=== PATIENT | male | born 1970 | race Caucasian/White ===

== ENCOUNTER 2017-03-26 00:24 | Inpatient (IN) | payer OTHER ==
[2017-03-26] MEDS ORDERED: NITROGLYCERIN 2% OINTMENT - 1GM PACKET TD ONE ×2 (01:11→01:14)
--- NOTE | 2017-03-26 01:22 | PDOC ---
History of Present Illness - General History Source: Patient Exam Limitations: No Limitations <Fide Trejo - Last Filed: 03/26/17 01:23> <Williams Oropeza - Last Filed: 03/26/17 02:15> - General Chief Complaint: Chest Pain Stated Complaint: CHEST PAIN Time Seen by Provider: 03/26/17 00:39 - History of Present Illness Initial Comments: 03/26/17 01:23 Patient is a 47 year old male, with past medical history of hypertension, who presents with chest pain. Patient describes the pain tightness, pulsating pressure like pain localized to the left side of the chest. He notes that the episode developed at 12 AM lasted for 15-20 mins which has subsided now. Patient states that the pain is non radiating, nonpleuritic, intermittent, 6/10 in severity with no alleviating or exacerbating factors with associated diaphoresis. He denies reproducible pain with moving the left arm. He denies leg pain or swelling. He notes that his last long travel was in December to [facility]. SH - former smoker quit in 1995 used to smoke 1/2 pack a day for 10-12 years. ALL - aspirin PSH - partial thyroidectomy PCP - Dr. Torres (Fide Trejo) Past History <Fide rTejo - Last Filed: 03/26/17 01:23> - Past Medical History HTN: Yes - Psycho/Social/Smoking Cessation Hx Suicidal Ideation: No Smoking Status: No Smoking History: Never smoked Number of Cigarettes Smoked Daily: 0 Hx Alcohol Use: No Drug/Substance Use Hx: No <Williams Oropeza - Last Filed: 03/26/17 02:15> - Past Medical History Allergies/Adverse Reactions: Allergies Allergy/AdvReac Type Severity Reaction Status Date / Time aspirin Allergy Mild "EYES Verified 03/26/17 00:36 BURN..FACE BLOWS UP LIKE BALLOON" Home Medications: Ambulatory Orders Amlodipine Besylate 5 mg PO DAILY 03/26/17 Valsartan 160 mg PO DAILY 03/26/17 Review of Systems - Review of Systems Able to Perform ROS?: Yes <Fide Trejo - Last Filed: 03/26/17 01:23> <Williams Oropeza - Last Filed: 03/26/17 02:15> - Review of Systems Comments:: 03/26/17 01:24 CONSTITUTIONAL: No fever, no chills, no fatigue EYES: No visual changes ENT: No ear pain, no sore throat CARDIOVASCULAR: +chest pain, +diaphoresis. No palpitations RESPIRATORY: No cough, no SOB GI: No abdominal pain, no nausea, no vomiting, no constipation, no diarrhea GENITOURINARY: No dysuria, no frequency, no hematuria MUSKULOSKELETAL: No back pain, no joint pain, no myalgias SKIN: No rash NEURO: No headache (Fide Trejo) *Physical Exam <Fide Trejo - Last Filed: 03/26/17 01:23> <Williams Oropeza - Last Filed: 03/26/17 02:15> - Vital Signs Last Vital Signs Temp Pulse Resp BP Pulse Ox 99 F 73 17 129/74 98 03/26/17 00:25 03/26/17 00:42 03/26/17 00:42 03/26/17 00:42 03/26/17 00:42 - Physical Exam Comments: 03/26/17 01:24 CONSTITUTIONAL: Well-appearing; well-nourished; in no apparent distress HEAD: Normocephalic; atraumatic EYES: PERRL; EOM intact ENMT: External appears normal; normal oropharynx NECK: Supple; nontender; no cervical lymphadenopathy CARD: Normal S1, S2; no murmurs, rubs, or gallops RESP: Normal chest excursion with respiration; breath sounds clear and equal bilaterally; no wheezes, rhonchi, or rales ABD: +Obese. Soft, non-distended; non-tender; no palpable organomegaly, no palpable hernias EXT: Normal ROM in all four extremities; non-tender to palpation; distal pulses intact SKIN: Warm, dry, no rash NEURO: No focal neurological deficiencies. (Fide Trejo) ED Treatment Course - LABORATORY CBC & Chemistry Diagram: 03/26/17 01:19 03/26/17 01:19 <Williams Oropeza - Last Filed: 03/26/17 02:15> - ADDITIONAL ORDERS Additional order review: Laboratory Results 03/26/17 03/26/17 01:19 01:19 INR 1.12 Sodium 140 Potassium 3.8 Chloride 102 Carbon Dioxide 30 Anion Gap 8 BUN 30 H Creatinine 1.6 H Creat Clearance w eGFR 46.17 Random Glucose 101 Calcium 8.7 Total Bilirubin 0.6 AST 22 ALT 34 Alkaline Phosphatase 43 L Creatine Kinase 325 H Troponin I 0.05 Total Protein 7.0 Albumin 4.0 03/26/17 01:19 RBC 4.52 MCV 94.2 MCHC 34.9 RDW 12.6 MPV 7.6 Neutrophils % 61.5 Lymphocytes % 27.4 Monocytes % 9.5 Eosinophils % 1.1 Basophils % 0.5 - RADIOLOGY Radiology Studies Ordered: Category Date Time Status CHEST X-RAY PORTABLE* [RAD] Stat Radiology 03/26/17 01:10 Ordered - Medications Given in the ED: ED Medications Discontinued Medications Generic Name Dose Route Start Last Admin Trade Name Freq PRN Reason Stop Dose Admin Clopidogrel Bisulfate 75 mg 03/26/17 02:01 03/26/17 02:10 Plavix - PO 03/26/17 02:02 75 mg ONCE ONE Administration Nitroglycerin 1 inch 03/26/17 01:11 03/26/17 01:28 Nitro-Bid 2% Paste - TD 03/26/17 01:12 1 inch ONCE ONE Administration Medical Decision Making <Fide Trejo - Last Filed: 03/26/17 01:23> <Williams Oropeza - Last Filed: 03/26/17 02:15> - Medical Decision Making 03/26/17 01:41 47-year-old male with history of hypertension, thyroid goiter, obesity, presents to the ER with left-sided chest pressure associated with mild shortness of breath and diaphoresis. In the ER, patient is asymptomatic and normotensive. Cotter saturation is noted to be 98% on room air. Initial EKG is within normal limit without evidence of acute ischemia. I suspect ACS. We'll obtain CBC/CMP/cardiac profile. We'll obtain chest x-ray. We'll administer transdermal nitroglycerin and Plavix by mouth (patient is severely aspirin ALLERGIC). We will admit for serial cardiac enzymes and cardiology evaluation. 03/26/17 02:10 Patient reassessed. Patient is resting comfortably and is currently symptom- free. First set of cardiac enzymes revealed an elevated CPK and normal troponin. Will admit for serial enzymes. Dr. Cordova informed and agrees with the plan of care. (Williams Oropeza) *DC/Admit/Observation/Transfer <Fide Trejo - Last Filed: 03/26/17 01:23> - Discharge Dispostion Admit: Yes <Williams Oropeza - Last Filed: 03/26/17 02:15> Diagnosis at time of Disposition: Acute coronary syndrome - Discharge Dispostion Condition at time of disposition: Fair - Referrals Referrals: Keshawn Torres MD [Primary Care Provider] - - Attestations Scribe Attestion: 03/26/17 01:25 Documentation prepared by RADHA Tolliver, acting as medical auditor for Williams Oropeza MD. (Fide Trejo) Physician Attestion: 03/26/17 01:41 The documentation was prepared by the scribe under my direct supervision. I have reviewed the documentation which correctly represents the findings, medical decision-making and critical action taken by me. (Williams Oropeza)
[2017-03-26 01:31] LABS: BASOPHIL 0.5 % (0-2.0); EOSINOPHIL 1.1 % (0-4.5); MCH 32.9 pg (25.7-33.7); MCHC 34.9 g/dl (32.0-35.9); MEAN CELL VOLUME 94.2 fl (80-96); MEAN PLT VOLUME 7.6 fl (7.5-11.1); NEUTROPHILS 61.5 % (42.8-82.8); PLATELET COUNT 179 K/MM3 (134-434); RDW 12.6 % (11.9-15.9); WHITE BLOOD COUNT 5.8 K/mm3 (4.0-10.0)
[2017-03-26 01:43] LABS: INR 1.12 (0.82-1.09); PROTHROMBIN TIME (PATIENT) 12.3 SEC (9.98-11.88)
[2017-03-26 01:53] LABS: ANION GAP 8 (8-16); BILIRUBIN,TOTAL 0.6 mg/dL (0.2-1.0); CALCIUM 8.7 mg/dL (8.5-10.1); CO2 30 mmol/L (21-32); CPK 325 IU/L (39-308); CREATININE 1.6 mg/dL (0.7-1.3); GLUCOSE,RANDOM 101 mg/dL (74-106); SGOT/AST 22 U/L (15-37); SGPT/ALT 34 U/L (12-78)
[2017-03-26 01:55] LABS: ALK PHOS 43 U/L (45-117); TROPONIN I 0.05 ng/ml (0.00-0.05)
[2017-03-26] MEDS ORDERED: CLOPIDOGREL BISULFATE 75 MG TABLET (FP) PO ONE (02:01)
[2017-03-26] MEDS ORDERED: SODIUM CHLORIDE 500 ML IV STA (02:02)
[2017-03-26] MEDS ORDERED: CLOPIDOGREL BISULFATE 75 MG TABLET (FP) ONE (02:05)
[2017-03-26] MEDS ORDERED: ONDANSETRON *ODT* 4 MG TABLET SL PRN (03:06)
[2017-03-26] MEDS ORDERED: ACETAMINOPHEN 325 MG TABLET (FP) PO PRN (03:06)
[2017-03-26] MEDS: DEXTROSE 5%-NORMAL SALINE 1,000 ML IV SCH (03:28)
[2017-03-26 06:57] LABS: MCH 32.6 pg (25.7-33.7); MCHC 34.8 g/dl (32.0-35.9); MEAN CELL VOLUME 93.5 fl (80-96); PLATELET COUNT 169 K/MM3 (134-434); RDW 12.8 % (11.9-15.9); WHITE BLOOD COUNT 5.2 K/mm3 (4.0-10.0)
[2017-03-26 07:15] LABS: TROPONIN I 0.05 ng/ml (0.00-0.05)
[2017-03-26 07:24] LABS: ALBUMIN 3.6 g/dl (3.4-5.0); ALK PHOS 38 U/L (45-117); ANION GAP 5 (8-16); BILIRUBIN,TOTAL 0.8 mg/dL (0.2-1.0); CALCIUM 8.4 mg/dL (8.5-10.1); CHOLESTEROL 158 mg/dL (50-200); CO2 30 mmol/L (21-32); CREATININE 1.2 mg/dL (0.7-1.3); GLUCOSE,RANDOM 102 mg/dL (74-106); SGOT/AST 21 U/L (15-37); SGPT/ALT 27 U/L (12-78); TOT PROT 6.4 g/dl (6.4-8.2)
[2017-03-26] MEDS ORDERED: VALSARTAN 160 MG TABLET (UD) PO SCH (10:00)
[2017-03-26] MEDS ORDERED: DIPYRIDAMOLE STRESS TEST 50 MG in DEXTROSE 5%-WATER - 40 ML IVPB ONE (10:30)
--- NOTE | 2017-03-26 11:00 | HP ---
Admitting History and Physical - Primary Care Physician PCP: Keshawn Torres - Admission Chief Complaint: chest pressure History of Present Illness: Patient is a 47 year old male, with past medical history of hypertension, who presents with chest pain. Patient describes the pain tightness, which started yesterday in evening, he state if felt like something heavy on the chest and he felt a little SOB< no nausea,no palpations non radiating, chest pain localized to left side of chest , it woke patient up from his sleep he took his pressure and 183/108 at that point he woke up his and told her to take him to the ER he stated he had angiogram 5 yrs ok and was told it was ok he states he has been experiencing SOB on walking about 1/2 block for last few weeks and he notice since yesterday his sneakers felt tighter, . per nursing noted complained of abdominal pain patient in ER he got plavix and nitroglycerin paste curently he is getting stress test= patient seen and examined in cardiac lab History Source: Patient - Past Medical History Cardiovascular: Yes: HTN Endocrine: Yes: Hypothyroidism - Past Surgical History Additional Past Surgical History: thyroidectomy - Smoking History Smoking history: Never smoked Aproximately how many cigarettes per day: 0 - Alcohol/Substance Use Hx Alcohol Use: No Home Medications - Allergies Allergies/Adverse Reactions: Allergies Allergy/AdvReac Type Severity Reaction Status Date / Time aspirin Allergy Mild "EYES Verified 03/26/17 00:36 BURN..FACE BLOWS UP LIKE BALLOON" - Home Medications Home Medications: Ambulatory Orders Amlodipine Besylate 5 mg PO DAILY 03/26/17 Valsartan 160 mg PO DAILY 03/26/17 Review of Systems - Review of Systems Neck: reports: No Symptoms Cardiovascular: reports: No Symptoms, Other (no SOB right now chest pressure resolved) Respiratory: reports: No Symptoms Gastrointestinal: reports: No Symptoms (did not complain of abdominal pain) Physical Examination Vital Signs: Vital Signs Temperature 97.5 F L 03/26/17 08:21 Pulse Rate 52 L 03/26/17 08:21 Respiratory Rate 16 03/26/17 08:21 Blood Pressure 126/77 03/26/17 08:21 O2 Sat by Pulse Oximetry (%) 98 03/26/17 08:21 sitting in stretcher awaiting second half of stress test says chest pain resolved Constitutional: Yes: Calm Neck: Yes: Trachea Midline Cardiovascular: Yes: Regular Rate and Rhythm, S1, S2 Respiratory: Yes: CTA Bilaterally Gastrointestinal: Yes: Normal Bowel Sounds, Soft Edema: No Neurological: Yes: Alert, Oriented Labs: CBC, BMP 03/26/17 06:30 03/26/17 06:30 Imaging - Results Other: Report Reviewed (carotid doppler shows mass in thyroid lobe no carotid stenosis) Problem List - Problems (1) Acute coronary syndrome Assessment/Plan: tele stress test- currently getting done awaiting results cardio consult plavix norvasc diovan carotid doppler result noted trend cardiac enzymes Code(s): I24.9 - ACUTE ISCHEMIC HEART DISEASE, UNSPECIFIED (2) Thyroid mass Assessment/Plan: thyroid sono endocrine consult Code(s): E07.9 - DISORDER OF THYROID, UNSPECIFIED
[2017-03-26] MEDS: amLODIPine BESYLATE 5 MG TABLET (FP) PO SCH (12:13)
--- NOTE | 2017-03-26 13:12 | EKG ---
Test Reason : Blood Pressure : / mmHG Vent. Rate : 053 BPM Atrial Rate : 053 BPM P-R Int : 182 ms QRS Dur : 098 ms QT Int : 442 ms P-R-T Axes : 023 -13 -02 degrees QTc Int : 414 ms SINUS BRADYCARDIA OTHERWISE NORMAL ECG WHEN COMPARED WITH ECG OF 24-JUN-2009 09:07, VENT. RATE HAS DECREASED BY 39 BPM Confirmed by KT SUÁREZ MD ([id number]) on 03/26/2017 1:11:42 PM Referred By: Confirmed By:KT SUÁREZ MD
--- NOTE | 2017-03-26 14:50 | CON.CARD ---
Consult Consult Specialty:: cardiology Reason for Consultation:: chest pain - History of Present Illness History of Present Illness: 47 M with HTN, anxiety, obesity with a history of exertional chest tightness, came to the ER with presistent chest pressure, diaphoresis and dypsnea which improved after he received NTP. MARGARITO -ve x 2 and ECG were normal. Echocardiogram was normal. Pharmacologic stress showed mild inferolateral defect from apex to base with EF 50%. A cardiac cath about 6 years ago was reportedly negative. Currently CP free. Of note the patient is ASPIRIN ALLERGIC. - History Source History Provided By: Patient Limitations to Obtaining History: No Limitations - Past Medical History Cardio/Vascular: Yes: HTN Endocrine: Yes: Hypothyroidism - Alcohol/Substance Use Hx Alcohol Use: No - Smoking History Smoking history: Former smoker Aproximately how many cigarettes per day: 0 - Social History Usual Living Arrangement: With Spouse Home Medications - Allergies Allergies/Adverse Reactions: Allergies Allergy/AdvReac Type Severity Reaction Status Date / Time aspirin Allergy Mild "EYES Verified 03/26/17 00:36 BURN..FACE BLOWS UP LIKE BALLOON" - Home Medications Home Medications: Ambulatory Orders Amlodipine Besylate 5 mg PO DAILY 03/26/17 Valsartan 160 mg PO DAILY 03/26/17 Family Disease History - Family Disease History Family History: Unable to Obtain (Adopted) Review of Systems - Review of Systems Constitutional: reports: No Symptoms Eyes: reports: No Symptoms HENT: reports: No Symptoms Neck: reports: No Symptoms Cardiovascular: reports: Chest Pain, Shortness of Breath Respiratory: reports: No Symptoms Gastrointestinal: reports: No Symptoms Genitourinary: reports: No Symptoms Breasts: reports: No Symptoms Reported Musculoskeletal: reports: No Symptoms Integumentary: reports: No Symptoms Vital Signs: Vital Signs Temperature 98.1 F 03/26/17 14:32 Pulse Rate 63 03/26/17 14:32 Respiratory Rate 18 03/26/17 12:40 Blood Pressure 130/77 03/26/17 14:32 O2 Sat by Pulse Oximetry (%) 98 03/26/17 14:32 Constitutional: Yes: Well Nourished, No Distress, Calm Eyes: Yes: Conjunctiva Clear, EOM Intact HENT: Yes: Atraumatic, Normocephalic Neck: Yes: Supple, Trachea Midline Respiratory: Yes: Regular, CTA Bilaterally Gastrointestinal: Yes: Normal Bowel Sounds, Soft Cardiovascular: Yes: Regular Rate and Rhythm JVD: No Carotid Bruit: No PMI: Non-Displaced Heart Sounds: Yes: S1, S2 Murmur: No: Systolic Murmur, Diastolic Murmur, Grade 1, Grade 2, Grade 3, Grade 4, Grade 5, Grade 6 Musculoskeletal: Yes: WNL Extremities: Yes: WNL Edema: No Neurological: Yes: WNL - Other Data Labs, Other Data: CBC, BMP 03/26/17 06:30 03/26/17 06:30 INR, PTT INR 1.12 (0.82-1.09) 03/26/17 01:19 Troponin, BNP 03/26/17 06:37 Troponin I 0.05 Troponin, BNP 03/26/17 06:37 Troponin I 0.05 NSR no STT changes. Ejection Fraction %: LVEF > or = 40 % Imaging - Results EKG: Image Reviewed Problem List - Problems (1) Acute coronary syndrome Code(s): I24.9 - ACUTE ISCHEMIC HEART DISEASE, UNSPECIFIED Assessment/Plan 47 M HTN, anxiety with chronic CP with exertion and admitted with severe chest pressure, diaphoresis and dyspnea. Stress showed normal EF with mild perfusion abnormality. Given new exacerbation of symptoms, would advise diagnostic cath tomorrow. I have made the arrangements for transfer to the label rewinder. If PCI is needed he will be admitted for ASA desensitization. Continue Plavix 75mg qd. Metoprolol 25mg BID Lipitor 80mg qHs please check last set of cardiac enzymes. LMWH or therapeutic IV heparin NPO after midnight
[2017-03-26 17:07] LABS: TROPONIN I 0.04 ng/ml (0.00-0.05)
[2017-03-26 18:12] VITALS: BMI 37.0
--- NOTE | 2017-03-27 00:13 | CONSULT ---
Consult Consult Specialty:: endocrine Referred by:: dr.saba lovelace Reason for Consultation:: hypothyroidism - History of Present Illness Chief Complaint: chest pain History of Present Illness: 47 year old male, with past medical history of hypertension, who presents with chest pain. Patient describes the pain tightness, which started yesterday in evening, he state if felt like something heavy on the chest and he felt a little SOB< no nausea,no palpations non radiating, chest pain localized to left side of chest , denies exertional pain,had persistant severe nature 7/10 substernal pain,no fever cough,or vomiting - History Source History Provided By: Patient - Past Medical History Cardio/Vascular: Yes: HTN Endocrine: Yes: Hypothyroidism - Alcohol/Substance Use Hx Alcohol Use: No - Smoking History Smoking history: Former smoker Have you smoked in the past 12 months: No Aproximately how many cigarettes per day: 0 - Social History Usual Living Arrangement: With Spouse Home Medications - Allergies Allergies/Adverse Reactions: Allergies Allergy/AdvReac Type Severity Reaction Status Date / Time aspirin Allergy Mild "EYES Verified 03/26/17 00:36 BURN..FACE BLOWS UP LIKE BALLOON" - Home Medications Home Medications: Ambulatory Orders Amlodipine Besylate 5 mg PO DAILY 03/26/17 Valsartan 160 mg PO DAILY 03/26/17 Review of Systems - Review of Systems Constitutional: reports: Lethargy, Weakness HENT: reports: Throat Pain Neck: reports: Decreased ROM Cardiovascular: reports: No Symptoms Respiratory: reports: No Symptoms Gastrointestinal: reports: Bloating, Constipation Genitourinary: reports: No Symptoms Breasts: reports: No Symptoms Reported Musculoskeletal: reports: No Symptoms Integumentary: reports: No Symptoms Neurological: reports: No Symptoms Endocrine: reports: Intolerance to Cold Physical Exam Vital Signs: Vital Signs Temperature 98.5 F 03/26/17 18:05 Pulse Rate 60 03/26/17 18:05 Respiratory Rate 18 03/26/17 18:18 Blood Pressure 139/73 03/26/17 18:05 O2 Sat by Pulse Oximetry (%) 98 03/26/17 18:18 Constitutional: Yes: Calm Eyes: Yes: EOM Intact HENT: Yes: Normocephalic Neck: Yes: Trachea Midline, Thyromegaly Cardiovascular: Yes: Regular Rate and Rhythm, Bradycardia, S2 Respiratory: Yes: CTA Bilaterally Gastrointestinal: Yes: Normal Bowel Sounds ...Rectal Exam: Yes: Deferred Renal/: Yes: WNL Breast(s): Yes: WNL Musculoskeletal: Yes: WNL Extremities: Yes: WNL Edema: No Peripheral Pulses WNL: Yes Neurological: Yes: Alert, Oriented Labs: CBC, BMP 03/26/17 06:30 03/26/17 06:30 Problem List - Problems (1) Acute coronary syndrome Code(s): I24.9 - ACUTE ISCHEMIC HEART DISEASE, UNSPECIFIED (2) Thyroid mass Code(s): E07.9 - DISORDER OF THYROID, UNSPECIFIED (3) Hypothyroid Code(s): E03.9 - HYPOTHYROIDISM, UNSPECIFIED Assessment/Plan Current Active Problems Acute coronary syndrome (Acute) Thyroid mass (Acute) hypertension \\morbid obesity thyroid mass left lobe Abnormal Lab Results 03/26/17 03/26/17 03/26/17 01:19 06:30 06:30 MPV 7.0 L Anion Gap 5 L BUN 30 H 26 H Creatinine 1.6 H Calcium 8.4 L Alkaline Phosphatase 43 L 38 L Creatine Kinase 325 H CK-MB (CK-2) 4.319 H 03/26/17 15:45 MPV Anion Gap BUN Creatinine Calcium Alkaline Phosphatase Creatine Kinase 318 H CK-MB (CK-2) Laboratory Results - last 24 hr 03/26/17 03/26/17 03/26/17 01:19 01:19 01:19 WBC 5.8 RBC 4.52 Hgb 14.9 Hct 42.6 MCV 94.2 MCH 32.9 MCHC 34.9 RDW 12.6 Plt Count 179 MPV 7.6 Neutrophils % 61.5 Lymphocytes % 27.4 Monocytes % 9.5 Eosinophils % 1.1 Basophils % 0.5 INR 1.12 Sodium 140 Potassium 3.8 Chloride 102 Carbon Dioxide 30 Anion Gap 8 BUN 30 H Creatinine 1.6 H Creat Clearance w eGFR 46.17 Random Glucose 101 Hemoglobin A1c % Calcium 8.7 Total Bilirubin 0.6 AST 22 ALT 34 Alkaline Phosphatase 43 L Creatine Kinase 325 H Creatine Kinase Index 1.3 CK-MB (CK-2) 4.319 H Troponin I 0.05 Total Protein 7.0 Albumin 4.0 Triglycerides Cholesterol Total LDL Cholesterol HDL Cholesterol 03/26/17 03/26/17 03/26/17 06:30 06:30 06:30 WBC 5.2 RBC 4.37 Hgb 14.2 Hct 40.9 MCV 93.5 MCH 32.6 MCHC 34.8 RDW 12.8 Plt Count 169 MPV 7.0 L Neutrophils % Lymphocytes % Monocytes % Eosinophils % Basophils % INR Sodium 141 Potassium 3.8 Chloride 106 Carbon Dioxide 30 Anion Gap 5 L BUN 26 H Creatinine 1.2 D Creat Clearance w eGFR > 60 Random Glucose 102 Hemoglobin A1c % 4.8 Calcium 8.4 L Total Bilirubin 0.8 D AST 21 ALT 27 D Alkaline Phosphatase 38 L Creatine Kinase Creatine Kinase Index CK-MB (CK-2) Troponin I Total Protein 6.4 Albumin 3.6 Triglycerides 64 Cholesterol 158 Total LDL Cholesterol 98 HDL Cholesterol 44 03/26/17 03/26/17 06:37 15:45 WBC RBC Hgb Hct MCV MCH MCHC RDW Plt Count MPV Neutrophils % Lymphocytes % Monocytes % Eosinophils % Basophils % INR Sodium Potassium Chloride Carbon Dioxide Anion Gap BUN Creatinine Creat Clearance w eGFR Random Glucose Hemoglobin A1c % Calcium Total Bilirubin AST ALT Alkaline Phosphatase Creatine Kinase 305 318 H Creatine Kinase Index 1.0 0.9 CK-MB (CK-2) 3.277 2.868 Troponin I 0.05 0.04 Total Protein Albumin Triglycerides Cholesterol Total LDL Cholesterol HDL Cholesterol plan: check tsh free t4 thyroid abs ck thyroid sonogram
--- NOTE | 2017-03-27 08:40 | DS ---
Physical Examination Vital Signs: Vital Signs Temperature 97.6 F 03/27/17 06:00 Pulse Rate 50 L 03/27/17 06:00 Respiratory Rate 20 03/27/17 06:00 Blood Pressure 123/77 03/27/17 06:00 O2 Sat by Pulse Oximetry (%) 95 03/26/17 21:00 Findings/Remarks: no cp at this time Cardiovascular: Yes: S1, S2 Respiratory: Yes: Regular, CTA Bilaterally Gastrointestinal: Yes: Normal Bowel Sounds, Soft Labs: CBC, BMP 03/26/17 06:30 03/26/17 06:30 Discharge Summary Reason For Visit: ACUTE CORONARY SYNDROME Current Active Problems Acute coronary syndrome (Acute) Hypothyroid (Acute) Thyroid mass (Acute) Hospital Course: - Problems (1) Acute coronary syndrome Assessment/Plan: tele stress test---with ischemia--for cath cardio consult noted plavix norvasc diovan carotid doppler result noted trend cardiac enzymes Code(s): I24.9 - ACUTE ISCHEMIC HEART DISEASE, UNSPECIFIED (2) Thyroid mass Assessment/Plan: thyroid sono endocrine consult tsh pendind Code(s): E07.9 - DISORDER OF THYROID, UNSPECIFIED - Instructions Referrals: Keshawn Torres MD [Primary Care Provider] - - Home Medications Comprehensive Discharge Medication List: Ambulatory Orders Amlodipine Besylate 5 mg PO DAILY 03/26/17 Valsartan 160 mg PO DAILY 03/26/17
[2017-03-27] MEDS: DEXTROSE 5%-NORMAL SALINE 1,000 ML IV SCH (09:35)
[2017-03-27] MEDS: amLODIPine BESYLATE 5 MG TABLET (FP) PO SCH (09:35)
[2017-03-27] MEDS ORDERED: CLOPIDOGREL BISULFATE 75 MG TABLET (FP) PO SCH (10:00)
[2017-03-27 10:34] VITALS: BP 140/75; PULSE 55; TEMP 97.8
--- NOTE | 2017-03-30 17:00 | EKG ---
Test Reason : Blood Pressure : / mmHG Vent. Rate : 082 BPM Atrial Rate : 082 BPM P-R Int : 174 ms QRS Dur : 100 ms QT Int : 390 ms P-R-T Axes : 040 -23 044 degrees QTc Int : 455 ms NORMAL SINUS RHYTHM NORMAL ECG WHEN COMPARED WITH ECG OF 24-JUN-2009 09:07, NO SIGNIFICANT CHANGE WAS FOUND Confirmed by MARIA PAEZ MD ([id number]) on 03/30/2017 5:00:30 PM Referred By: Confirmed By:MARIA PAEZ MD
== END 2017-03-27 11:24 | disposition short-term general hospital (02) | DRG 311 ==
LOC: JER 00:24 → JERBED 02:15 → J4W 14:29
PROVIDERS: ADMIT Family Medicine; ATTEND Family Medicine
DX: I20.9 Angina pectoris, unspecified (principal); I24.9 Acute ischemic heart disease, unspecified; I10 Essential (primary) hypertension; E03.9 Hypothyroidism, unspecified; E07.9 Disorder of thyroid, unspecified; R07.9 Chest pain, unspecified; E66.01 Morbid (severe) obesity due to excess calories; Z68.37 Body mass index [BMI] 37.0-37.9, adult
CPT/HCPCS: 36415; 71010-TC; 74020-TC; 78452-TC; 80053; 80061; 82553; 83036; 83721; 84443; 84484; 85025; 85027; 85610; 86800; 93005; 93010; 93017; 93306-TC; 93880-TC; 99285-25; A9502

== ENCOUNTER 2021-02-06 08:32 | Observation (INO) | payer OTHER ==
[2021-02-06 09:37] LABS: BASO % 0.5 % (0-2.0); EOS % 1.8 % (0-4.5); HEMATOCRIT 39.6 % (35.4-49); HEMOGLOBIN 13.6 GM/dL (11.7-16.9); LYMPH % 17.6 % (8-40); MCH 32.2 pg (25.7-33.7); MCHC 34.5 g/dl (32.0-35.9); MEAN CELL VOLUME 93.4 fl (80-96); MEAN PLT VOLUME 7.1 fl (7.5-11.1); MONO % 6.3 % (3.8-10.2); NEUT % 73.8 % (42.8-82.8); PLATELET COUNT 196 10^3/uL (134-434); RBC 4.24 M/mm3 (4.00-5.60); RDW 13.7 % (11.9-15.9); WHITE BLOOD COUNT 6.8 K/mm3 (4.0-10.0)
[2021-02-06 09:45] LABS: INR 0.98 (0.83-1.09); PROTHROMBIN TIME (PATIENT) 12.1 SEC (9.7-13.0)
[2021-02-06 09:48] LABS: ACTIVATED PTT 29.3 SECONDS (25.2-36.5)
[2021-02-06 09:58] LABS: CALCIUM 8.8 mg/dL (8.5-10.1)
[2021-02-06 09:59] LABS: ALBUMIN 3.8 g/dl (3.4-5.0); BLOOD UREA NITROGEN 24.8 mg/dL (7-18)
[2021-02-06 10:02] LABS: CREATININE 1.5 mg/dL (0.55-1.3)
[2021-02-06 10:03] LABS: TOT PROT 7.2 g/dl (6.4-8.2)
[2021-02-06 10:05] LABS: BILIRUBIN,TOTAL 0.6 mg/dL (0.2-1)
[2021-02-06] MEDS ORDERED: ACETAMINOPHEN 325 MG TABLET (FP) PO PRN (12:54)
[2021-02-06] MEDS ORDERED: NITROGLYCERIN SUBLINGUAL 1/150 0.4 MG TAB SL PRN (12:54)
[2021-02-06] MEDS ORDERED: ALBUTEROL SO4 0.042% IH SOL 1.25 MG/3 ML VIAL.NEB NEB PRN (12:55)
[2021-02-06] MEDS ORDERED: ALBUTEROL SO4 2.5/IPRATROPIUM 0.5 INH SOL 3 ML VIAL.NEB. NEB PRN (12:55)
[2021-02-06] MEDS ORDERED: amLODIPine BESYLATE 5 MG TABLET (FP) ONE (13:23)
[2021-02-06] MEDS: amLODIPine BESYLATE 10 MG TABLET (FP) PO SCH (13:32)
[2021-02-06] MEDS ORDERED: HEPARIN NA (PORCINE) 5,000 UNITS/ML 1ML VIAL ONE (21:23)
[2021-02-06 22:01] VITALS: BMI 48.3
[2021-02-06] MEDS: HEPARIN NA (PORCINE) 5,000 UNITS/ML 1ML VIAL SQ SCH (22:27)
[2021-02-07 06:50] LABS: HEMATOCRIT 39.2 % (35.4-49); HEMOGLOBIN 13.5 GM/dL (11.7-16.9); MCH 31.8 pg (25.7-33.7); MCHC 34.4 g/dl (32.0-35.9); MEAN CELL VOLUME 92.4 fl (80-96); MEAN PLT VOLUME 7.1 fl (7.5-11.1); PLATELET COUNT 182 10^3/uL (134-434); RBC 4.24 M/mm3 (4.00-5.60); RDW 14.1 % (11.9-15.9); WHITE BLOOD COUNT 6.5 K/mm3 (4.0-10.0)
[2021-02-07 07:12] LABS: CALCIUM 8.5 mg/dL (8.5-10.1)
[2021-02-07 07:13] LABS: ALBUMIN 3.6 g/dl (3.4-5.0); BLOOD UREA NITROGEN 20.7 mg/dL (7-18)
[2021-02-07 07:16] LABS: CREATININE 1.4 mg/dL (0.55-1.3)
[2021-02-07 07:17] LABS: BILIRUBIN,TOTAL 0.5 mg/dL (0.2-1); TOT PROT 6.9 g/dl (6.4-8.2)
[2021-02-07] MEDS: amLODIPine BESYLATE 10 MG TABLET (FP) PO SCH ×2 (07:59→10:25)
[2021-02-07] MEDS ORDERED: REGADENOSON 0.4 MG/5 ML PRE-FILLED SYRINGE IVPUSH ONE ×2 (08:59→10:00)
[2021-02-07] MEDS: CLOPIDOGREL BISULFATE 75 MG TABLET (FP) PO SCH (09:44)
[2021-02-07] MEDS: HEPARIN NA (PORCINE) 5,000 UNITS/ML 1ML VIAL SQ SCH ×2 (09:44→21:35)
[2021-02-07] MEDS: ASPIRIN COATED 81 MG TABLET.EC PO SCH (09:44)
[2021-02-07 15:58] LABS: EPI CELLS 1 /uL (0-25.1); HYALINE CASTS 0 /uL (0-3.1); PH,URINE 6.5 (5.0-8.0); URINE APPEARANCE CLEAR; URINE BACTERIA 3 /uL (0-1359); URINE BILIRUBIN NEGATIVE (NEGATIVE); URINE COLOR YELLOW; URINE GLUCOSE (UA) NEGATIVE (NEGATIVE); URINE KETONE NEGATIVE (NEGATIVE); URINE LEUK ESTERASE NEGATIVE (NEGATIVE); URINE NITRITE NEGATIVE (NEGATIVE); URINE PROTEIN 3+ (NEGATIVE); URINE RBC 9 /uL (0-23.9); URINE WBC 3 /uL (0-25.8)
[2021-02-07] MEDS: TAMSULOSIN HCL 0.4 MG CAP PO SCH (21:34)
[2021-02-07] MEDS ORDERED: ATORVASTATIN CA 40 MG TABLET (FP) PO SCH (22:00)
[2021-02-08] MEDS: TAMSULOSIN HCL 0.4 MG CAP PO SCH (06:01)
[2021-02-08 10:03] VITALS: BP 135/85; PULSE 86; TEMP 98.5
[2021-02-08] MEDS: ASPIRIN COATED 81 MG TABLET.EC PO SCH (10:27)
[2021-02-08] MEDS: HEPARIN NA (PORCINE) 5,000 UNITS/ML 1ML VIAL SQ SCH (10:27)
[2021-02-08] MEDS: CLOPIDOGREL BISULFATE 75 MG TABLET (FP) PO SCH (10:27)
[2021-02-08] MEDS: amLODIPine BESYLATE 10 MG TABLET (FP) PO SCH (10:27)
== END 2021-02-08 18:12 | disposition home or self-care (01) ==
LOC: JER 08:32 → UNDOADMOB 10:31 → JERBED 10:31 → OBSVTOIN 12:52 → INTOOBSV 12:52 → J4W 21:25 → JERBED 21:25 → J4W 02-07 10:22 → JERBED 02-07 10:22 → J4W 02-07 17:09
PROVIDERS: ADMIT Family Medicine; ATTEND Family Medicine
PROC: 3E023GC Introduction of Other Therapeutic Substance into Muscle, Percutaneous Approach (ICD-10-PCS; principal; 2021-02-07)
PROC: 3E033GC Introduction of Other Therapeutic Substance into Peripheral Vein, Percutaneous Approach (ICD-10-PCS; 2021-02-07)
DX: I25.10 Atherosclerotic heart disease of native coronary artery without angina pectoris (principal); I11.9 Hypertensive heart disease without heart failure; N18.9 Chronic kidney disease, unspecified; E66.01 Morbid (severe) obesity due to excess calories; Z95.5 Presence of coronary angioplasty implant and graft; E78.5 Hyperlipidemia, unspecified; E03.9 Hypothyroidism, unspecified; R10.9 Unspecified abdominal pain; R63.0 Anorexia; R05 Cough; R07.9 Chest pain, unspecified; Z68.41 Body mass index [BMI] 40.0-44.9, adult; Z87.891 Personal history of nicotine dependence; Z79.82 Long term (current) use of aspirin; Z79.01 Long term (current) use of anticoagulants
CPT/HCPCS: 36415; 71045-TC-FY; 76775-TC; 78452-TC; 80053; 80061; 81003; 82550; 82553; 82570; 83036; 83721; 83880; 84156; 84439; 84443; 84484; 85025; 85027; 85379; 85610; 85730; 93005; 93010; 93017; 93306-TC; 99285-25; A9502; C9803; G0378; J1644; J2785; U0003; U0005

== ENCOUNTER 2023-03-03 21:09 | Emergency (ER) | payer OTHER ==
[2023-03-03 21:28] VITALS: BP 141/77; PULSE 89; RESP 18; TEMP 98; BMI 42.8
[2023-03-03] MEDS ORDERED: SODIUM CHLORIDE 0.9% 500 ML INFUS.BAG IV ONE (23:40)
[2023-03-03] MEDS ORDERED: ACETAMINOPHEN 1000 MG/100 ML BAG IVPB ONE (23:40)
[2023-03-04] MEDS ORDERED: ACETAMINOPHEN INJECTION 100 ML IVPB ONE (00:04)
[2023-03-04 01:09] LABS: BASO % 0.2 % (0-2.0); EOS % 0.1 % (0-4.5); HEMATOCRIT 36.2 % (35.4-49); HEMOGLOBIN 12.3 GM/dL (11.7-16.9); LYMPH % 11.8 % (8-40); MCH 31.5 pg (25.7-33.7); MCHC 34.1 g/dl (32.0-35.9); MEAN CELL VOLUME 92.4 fl (80-96); MEAN PLT VOLUME 7.6 fl (7.5-11.1); MONO % 6.9 % (3.8-10.2); PLATELET COUNT 226 10^3/uL (134-434); RBC 3.91 M/mm3 (4.00-5.60); RDW 13.8 % (11.9-15.9); WHITE BLOOD COUNT 10.1 K/mm3 (4.0-10.0)
[2023-03-04 01:10] LABS: INR 1.08 (0.83-1.09); PROTHROMBIN TIME (PATIENT) 12.5 SEC (9.7-13.0)
[2023-03-04 01:13] LABS: ACTIVATED PTT 31.4 SECONDS (25.2-36.5)
[2023-03-04 02:07] LABS: EPI CELLS 3 /uL (0-25.1); HYALINE CASTS 0 /uL (0-3.1); PH,URINE 5.5 (5.0-8.0); URINE APPEARANCE CLEAR; URINE BACTERIA 7 /uL (0-1359); URINE BILIRUBIN NEGATIVE (NEGATIVE); URINE COLOR YELLOW; URINE GLUCOSE (UA) 1+ (NEGATIVE); URINE KETONE NEGATIVE (NEGATIVE); URINE LEUK ESTERASE NEGATIVE (NEGATIVE); URINE NITRITE NEGATIVE (NEGATIVE); URINE PROTEIN 2+ (NEGATIVE); URINE RBC 18 /uL (0-23.9); URINE UROBILINOGEN 0.2 mg/dL (0.2-1.0); URINE WBC 3 /uL (0-25.8)
[2023-03-04] MEDS ORDERED: LIDOCAINE 5% TOPICAL PATCH TP ONE (02:39)
[2023-03-04] MEDS ORDERED: LIDOCAINE 5% TOPICAL PATCH ONE (02:44)
[2023-03-04 03:48] LABS: POTASSIUM 4.5 mmol/L (3.5-5.1)
[2023-03-04 03:52] LABS: ALBUMIN 3.8 g/dl (3.4-5.0); CALCIUM 8.7 mg/dL (8.5-10.1)
[2023-03-04 03:57] LABS: TOT PROT 7.1 g/dl (6.4-8.2)
[2023-03-04 04:20] LABS: BILIRUBIN,TOTAL 0.3 mg/dL (0.2-1)
[2023-03-04] MEDS ORDERED: LIDOCAINE PATCH REMOVAL MC SCH (22:00)
== END 2023-03-04 03:00 | disposition home or self-care (01) ==
LOC: JER 21:09
PROC: 3E033NZ Introduction of Analgesics, Hypnotics, Sedatives into Peripheral Vein, Percutaneous Approach (ICD-10-PCS; principal; 2023-03-04)
DX: M54.50 Low back pain, unspecified (principal); R10.31 Right lower quadrant pain; R33.9 Retention of urine, unspecified
CPT/HCPCS: 36415; 74176-TC; 80053; 81003; 85025; 85610; 85730; 86850; 86900; 86901; 87086; 99284-25

== ENCOUNTER 2024-02-11 01:23 | Emergency (ER) | payer OTHER ==
[2024-02-11 01:39] VITALS: BP 132/81; PULSE 90; RESP 20; TEMP 97.5; BMI 43.2
[2024-02-11] MEDS ORDERED: ACETAMINOPHEN 325 MG TABLET (FP) ONE (04:56)
[2024-02-11] MEDS: ACETAMINOPHEN 500 MG TABLET (FP) PO ONE (05:01)
[2024-02-11] MEDS ORDERED: MAG HYDROX/AL HYDROX/SIMETH 30 ML UNIT-DOSE CUP ONE (05:53)
[2024-02-11] MEDS: MAG HYDROX/AL HYDROX/SIMETH 30 ML UNIT-DOSE CUP PO ONE (05:55)
== END 2024-02-11 06:21 | disposition home or self-care (01) ==
LOC: JER 01:23
DX: T83.098A Other mechanical complication of other urinary catheter, initial encounter (principal); N48.89 Other specified disorders of penis; Y83.1 Surgical operation with implant of artificial internal device as the cause of abnormal reaction of the patient, or of later complication, without mention of misadventure at the time of the procedure
CPT/HCPCS: 93005; 93010; 99283-25